=== PATIENT | female | born 1980 | race Caucasian/White ===

== ENCOUNTER 2017-11-12 12:46 | Emergency (ER) | payer OTHER ==
[2017-11-12 13:10] LABS: BILIRUBIN,URINE NEGATIVE (NEGATIVE); GLUCOSE, URINE (UA) NEGATIVE (NEGATIVE); KETONES,URINE (UA) NEGATIVE (NEGATIVE); LEUKOCYTE ESTERASE, URINE MODERATE (NEGATIVE); NITRITE,URINE NEGATIVE (NEGATIVE); OCCULT BLOOD,URINE LARGE (NEGATIVE); PH,URINE 5.5 PH (5.0-7.5); PROTEIN,URINE NEGATIVE (NEGATIVE); UROBILINOGEN,URINE 0.2 (NORMAL) E.U./dL (NORMAL)
[2017-11-12 13:11] LABS: CLARITY,URINE SL. CLOUDY (CLEAR)
[2017-11-12 13:13] LABS: HCG UR QUAL NEGATIVE
[2017-11-12 13:37] LABS: BACTERIA,URINE Moderate /HPF (None Seen); SQUAMOUS EPITHELIAL CELL,UR RARE Squamous (<= Few)
--- NOTE | 2017-11-12 13:59 | ED Physician Documentation ---
History of Present Illness - Stated complaint Stated Complaint: FEMALE - Chief complaint Chief Complaint: General - Additonal information Additional information: hx from pt 36 y/o f recurrent UTI has seen urology and advised dos not completely empty her bladder and is mends for that to ED with dysuria and suprapubic pain no fever, occ chills, no flank pain, no NV Review of Systems Constitutional: denies: Fever, Chills GI: reports: Abdominal Pain (suprapubic). denies: Nausea, Vomiting : reports: Dysuria. denies: Now EGA Immunocompromised: denies: Immunocompromised PD PAST MEDICAL HISTORY - Past Medical History Past Medical History: No - Present Medications Home Medications: Ambulatory Orders Medication Instructions Recorded Confirmed Cephalexin [Keflex] 500 mg PO Q6H #28 capsule 11/12/17 Topiramate [Topamax] 25 mg PO DAILY 11/12/17 11/12/17 - Allergies Allergies/Adverse Reactions: Allergies Allergy/AdvReac Type Severity Reaction Status Date / Time No Known Drug Allergies Allergy Verified 11/12/17 13:01 - Social History Does the pt smoke?: No Smoking Status: Never smoker PD ED PE NORMAL - Vitals Vital signs reviewed: Yes - Neck Neck: Supple, no meningeal sign - Cardiac Cardiac: RRR - Respiratory Respiratory: No respiratory distress, Clear bilaterally - Abdomen Abdomen: Soft, Non tender, Other (no suprapubic pain) - Back Back: No CVA TTP - Derm Derm: Normal color Results - Vitals Vitals: Vital Signs - 24 hr 11/12/17 13:00 Temperature 36.5 C Heart Rate 87 Respiratory 16 Rate Blood Pressure 144/92 H O2 Saturation 99 Oxygen O2 Source Room air - Labs Labs: Laboratory Tests 11/12/17 11/12/17 13:03 13:03 Urine Color YELLOW Urine Clarity SL. CLOUDY Urine pH 5.5 Ur Specific [place] <=1.005 <=1.005 Urine Protein NEGATIVE Urine Glucose (UA) NEGATIVE Urine Ketones NEGATIVE Urine Occult Blood LARGE H Urine Nitrite NEGATIVE Urine Bilirubin NEGATIVE Urine Urobilinogen 0.2 (NORMAL) Ur Leukocyte Esterase MODERATE H Urine RBC 6-10 H Urine WBC >25 H Ur Squamous Epith Cells RARE Squamous Urine Bacteria Moderate H Ur Microscopic Review INDICATED Urine Culture Comments INDICATED Urine HCG, Qual NEGATIVE PD MEDICAL DECISION MAKING - Sepsis Event Vital Signs: Vital Signs - 24 hr 11/12/17 13:00 Temperature 36.5 C Heart Rate 87 Respiratory 16 Rate Blood Pressure 144/92 H O2 Saturation 99 Oxygen O2 Source Room air Departure - Departure Disposition: 01 Home, Self Care Clinical Impression: UTI (urinary tract infection) Qualifiers: Urinary tract infection type: acute cystitis Hematuria presence: with hematuria Qualified Code(s): N30.01 - Acute cystitis with hematuria Condition: Good Instructions: ED UTI Cystitis Female Prescriptions: Cephalexin [Keflex] 500 mg PO Q6H #28 capsule Comments: Please follow up with your PMD for a test of cure urine after completing the antibiotics
[2017-11-12 14:48] VITALS: BP 129/96
== END 2017-11-12 14:48 | disposition home or self-care (01) ==
LOC: ED 12:46
DX: N30.01 Acute cystitis with hematuria (principal)
CPT/HCPCS: 81001; 81003; 81025; 87086; 99283

== ENCOUNTER 2018-04-06 10:47 | Emergency (ER) | payer OTHER ==
[2018-04-06 11:24] LABS: BASOPHILS # (AUTO) 0.1 10^3/uL (0.0-0.1); BASOPHILS % (AUTO) 0.8 %; EOSINOPHILS # (AUTO) 0.2 10^3/uL (0.0-0.7); EOSINOPHILS % (AUTO) 3.7 %; HGB - HEMOGLOBIN 12.1 g/dL (12.0-16.0); LYMPHOCYTES # (AUTO) 1.5 10^3/uL (1.5-3.5); LYMPHOCYTES % (AUTO) 23.4 %; MEAN CORPUSCULAR HEMOGLOBIN 30.9 pg (27.0-31.0); MEAN CORPUSCULAR HGB CONC 34.4 g/dL (32.0-36.0); MEAN CORPUSCULAR VOLUME 89.7 fL (81.0-99.0); MEAN PLATELET VOLUME 8.3 fL (7.9-10.8); MONOCYTES # (AUTO) 0.4 10^3/uL (0.0-1.0); MONOCYTES % (AUTO) 6.9 %; NEUTROPHILS # (AUTO) 4.2 10^3/uL (1.5-6.6); NEUTROPHILS % (AUTO) 65.2 %; PLT - PLATELET COUNT 230 10^3/uL (130-450); RED BLOOD COUNT 3.91 10^6/uL (4.20-5.40); RED CELL DISTRIBUTION WIDTH 12.9 % (12.0-15.0); WHITE BLOOD COUNT 6.4 x10^3/uL (4.8-10.8)
[2018-04-06 11:41] LABS: ALBUMIN 4.4 g/dL (3.2-5.5); BILIRUBIN,TOTAL 0.5 mg/dL (0.2-1.0); CREATININE 0.9 mg/dL (0.4-1.0); TOTAL PROTEIN 6.6 g/dL (6.7-8.2)
--- NOTE | 2018-04-06 12:34 | ED Physician Documentation ---
PD HPI CHEST PAIN - Stated complaint Stated Complaint: CHEST PAIN - Chief complaint Chief Complaint: General - History obtained from History obtained from: Patient - History of Present Illness Timing - onset: How many minutes ago (45), Today Timing - onset during: Rest Timing - duration: Minutes (she has had this last week, onset at rest, lasted about 30 minutes. Had again today, and has persisted for 45 minutes, but is decreasing since arrival here.) Quality: Pressure, Tightness, Aching Location: Substernal, Left chest Radiation: Neck. No: Back, Abdominal Improved by: No: Rest Worsened by: No: Exertion, Inspiration, Movement, Palpation Associated symptoms: Shortness of air, Feeling faint / dizzy. No: Diaphoresis, Nausea, Vomiting, General Weakness, Palpitations, Cough Similar symptoms before: Has not had sx before Recently seen: Not recently seen Review of Systems Constitutional: denies: Fever, Chills Nose: denies: Rhinorrhea / runny nose, Congestion Throat: denies: Sore throat Cardiac: reports: Chest pain / pressure. denies: Palpitations, Pedal edema, Calf pain Respiratory: reports: Dyspnea. denies: Cough, Wheezing GI: denies: Abdominal Pain, Nausea, Vomiting, Diarrhea Neurologic: denies: Generalized weakness, Focal weakness, Near syncope PD PAST MEDICAL HISTORY - Past Medical History Cardiovascular: None Respiratory: None - Present Medications Home Medications: Ambulatory Orders Medication Instructions Recorded Confirmed Cephalexin [Keflex] 500 mg PO Q6H #28 capsule 11/12/17 Mirabegron [Myrbetriq] 50 mg PO 11/12/17 Topiramate [Topamax] 25 mg PO DAILY 11/12/17 11/12/17 Naproxen 375 mg PO BID #20 tablet 04/06/18 - Allergies Allergies/Adverse Reactions: Allergies Allergy/AdvReac Type Severity Reaction Status Date / Time No Known Drug Allergies Allergy Verified 11/12/17 13:01 - Social History Does the pt smoke?: No Smoking Status: Never smoker - Family History Family history: reports: CAD. denies: Sudden PD ED PE NORMAL - Vitals Vital signs reviewed: Yes - General General: Alert and oriented X 3, No acute distress, Well developed/nourished - HEENT HEENT: Ears normal, Pharynx benign - Neck Neck: Supple, no meningeal sign, No adenopathy - Cardiac Cardiac: RRR, No murmur - Respiratory Respiratory: Clear bilaterally, Other (no CWT) - Abdomen Abdomen: Normal bowel sounds, Soft, Non tender, Non distended - Back Back: No CVA TTP - Derm Derm: Normal color, Warm and dry - Extremities Extremities: No deformity, No tenderness to palpate, Normal ROM s pain, No edema, No calf tenderness / cord - Neuro Neuro: Alert and oriented X 3, No motor deficit, Normal speech Results - Vitals Vitals: Vital Signs - 24 hr 04/06/18 04/06/18 04/06/18 10:57 12:30 13:00 Temperature 36.6 C Heart Rate 62 51 L 59 L Respiratory 14 16 16 Rate Blood Pressure 135/86 H 130/71 130/82 H O2 Saturation 100 100 100 Oxygen O2 Source Room air - EKG (time done) 10:55 Rate: Rate (enter#) (62) Rhythm: NSR [place]: Normal Intervals: Normal [place] QRS: Normal Ischemia: Normal ST segments. No: ST elevation c/w ischemia, ST depression, Hyperacute T waves - Labs Labs: Laboratory Tests 04/06/18 04/06/18 04/06/18 11:20 11:20 11:20 WBC 6.4 RBC 3.91 L Hgb 12.1 Hct 35.1 L MCV 89.7 MCH 30.9 MCHC 34.4 RDW 12.9 Plt Count 230 MPV 8.3 Neut # (Auto) 4.2 Lymph # (Auto) 1.5 [place] # (Auto) 0.4 Eos # (Auto) 0.2 Baso # (Auto) 0.1 Absolute Nucleated RBC 0.00 Nucleated RBC % 0.0 Sodium 138 Potassium 3.8 Chloride 111 Carbon Dioxide 21 Anion Gap 6.0 BUN 17 Creatinine 0.9 Estimated GFR (MDRD) 70 L Glucose 100 Calcium 9.0 Total Bilirubin 0.5 AST 16 ALT 11 Alkaline Phosphatase 56 Troponin I < 0.04 Total Protein 6.6 L Albumin 4.4 Globulin 2.2 Albumin/Globulin Ratio 2.0 Lipase 41 PD MEDICAL DECISION MAKING - ED course Complexity details: reviewed results (labs are normal and CXR/ECG. No change with GI cocktail. Is not tender in abd. ), considered differential (pericarditis, PA, PTX, effusion, gallbladder colic, reflux. musculoskeletal. ), d/w patient Departure - Departure Disposition: 01 Home, Self Care Clinical Impression: Left sided chest pain Condition: Stable Record reviewed to determine appropriate education?: Yes Instructions: ED Chest Pain Atypical Unkn Cause Follow-Up: ELAINA Mckeon [Provider Group] [facility] [Provider Group] Prescriptions: Naproxen 375 mg PO BID #20 tablet Comments: There is no signs of heart attack, irregular heart rhythm, fluid in the lungs, collapsed lung, and does not sound like reflux. It does not not sound muscu loskeletal per se we could try some naproxen or ibuprofen twice daily for the next several days to week if there is some inflammatory component. The description and episodes of it could have a basis with an irregular heart rhythm. Follow-up with your primary care or cardiology if recurrent episodes as they could set you up with a heart monitor that record to your heart rhythm over a period of several days to week and that would show if there is any irregularity of the heart rhythm occurring during those times. Discharge Date/Time: 04/06/18 13:37
--- NOTE | 2018-04-06 12:41 | XRAY Report ---
Reason: chest pain Procedure Date: 04/06/2018 Accession Number: [id number] / [id number] Procedure: XR - Chest 1 View X-Ray CPT Code: 01970 FULL RESULT: EXAM: CHEST RADIOGRAPHY EXAM DATE: 04/06/2018 11:29 AM. CLINICAL HISTORY: Chest pain. COMPARISON: None. TECHNIQUE: 1 view. FINDINGS: Lungs/Pleura: No focal opacities evident. No pleural effusion. No pneumothorax. Mediastinum: Within exam limitations, the cardiomediastinal contour is normal. Other: None. IMPRESSION: Normal single view chest. RADIA
[2018-04-06] MEDS ORDERED: LIDOCAINE VISCOUS 2% 15 ML UDC MM STA (12:52)
[2018-04-06] MEDS ORDERED: ACETAMINOPHEN 325 MG TABLET PO STA (12:52)
[2018-04-06] MEDS ORDERED: MAG HYDROX/AL HYDROX/SIMETH 30 ML UDC PO STA (12:52)
[2018-04-06 13:08] VITALS: BP 130/82
== END 2018-04-06 13:37 | disposition home or self-care (01) ==
LOC: ED 10:47
DX: R07.9 Chest pain, unspecified (principal)
CPT/HCPCS: 36415; 71045; 80053; 83690; 84484; 85025; 93005; 99283; A9270

== ENCOUNTER 2020-08-15 10:06 | Outpatient (CLI) | payer OTHER | END 2020-08-15 10:07 | disposition EMS.NT | LOC: EMS 10:06 | DX: R55 Syncope and collapse (principal) ==

== ENCOUNTER 2022-09-24 09:15 | Outpatient (CLI) | payer OTHER ==
--- NOTE | 2022-09-24 14:16 | XRAY Report ---
PROCEDURE: Tib/Fib LT INDICATIONS: CONTUSION OF THE LEFT LEG TECHNIQUE: 2 views of the tibia and fibula were acquired. COMPARISON: None. FINDINGS: Bones: No fractures or dislocations. No suspicious bony lesions. Soft tissues: No suspicious soft tissue calcifications or masses. IMPRESSION: No acute bony abnormality. Reviewed by: Paras Caba MD on 09/24/2022 2:15 PM PDT Approved by: Paras Caba MD on 09/24/2022 2:15 PM PDT Station ID: [id number]
== END 2022-09-24 09:30 | disposition home or self-care (01) ==
LOC: DI.N 09:15
PROVIDERS: ATTEND Physician Assistant
DX: S80.12XA Contusion of left lower leg, initial encounter (principal)